=== PATIENT | female | born 1965 | race Caucasian/White ===

== ENCOUNTER 2020-11-09 13:20 | Day surgery (SDC) | payer OTHER ==
[~2020-11-09] VITALS: Ht 165.1 cm; Wt 58.3 kg
[2020-11-09] MEDS ORDERED: LATANOPROST OP (13:49)
[2020-11-09] MEDS ORDERED: AMOX1TAB12 PO (13:49)
[2020-11-09] MEDS ORDERED: HYDR-3245 PO (13:49)
[2020-11-09] MEDS ORDERED: ONDA4TAB13 SL (13:49)
[2020-11-09] MEDS ORDERED: CHLORHEXIDINE 15 ML UDC MM ONE (14:00)
[2020-11-09] MEDS ORDERED: LACTATED RINGERS 1,000 ML IV SCH (14:00)
[2020-11-09 14:01] VITALS: BP 107/70
[2020-11-09] MEDS ORDERED: EPINEPHRINE 1 MG/ML, 1ML ONE (16:20)
[2020-11-09] MEDS ORDERED: LIDOCAINE 1%, 20ML ONE (16:20)
[2020-11-09] MEDS ORDERED: MIDAZOLAM 1 MG/ML, 2ML ONE (16:34)
[2020-11-09] MEDS ORDERED: FENTANYL PF 100 MCG/2ML ONE (16:34)
[2020-11-09] MEDS ORDERED: CEFAZOLIN 1,000 MG ONE (16:36)
[2020-11-09] MEDS ORDERED: PROPOFOL 10 MG/ML, 50ML ONE (16:36)
[2020-11-09] MEDS ORDERED: ONDANSETRON 2MG/ML, 2ML IVPush PRN (17:00)
[2020-11-09] MEDS ORDERED: OXYcodone 5 MG/5 ML ORAL.SOL UDC PO PRN (17:00)
[2020-11-09] MEDS ORDERED: PROMETHAZINE 25 MG/ML, 1ML IVPush PRN (17:00)
[2020-11-09] MEDS ORDERED: KETOROLAC 30 MG/1 ML IVPush PRN (17:00)
[2020-11-09] MEDS ORDERED: ACETAMINOPHEN 325 MG TABLET PO PRN (17:00)
[2020-11-09] MEDS ORDERED: FENTANYL PF 100 MCG/2ML IV PRN (17:00)
[2020-11-09] MEDS ORDERED: ACETAMINOPHEN 650 MG/20.3 ML UDC ONE (17:41)
== END 2020-11-09 18:49 | disposition home or self-care (01) ==
LOC: OUT 13:20
PROVIDERS: ATTEND Orthopaedic Surgery
DX: S61.240A Puncture wound with foreign body of right index finger without damage to nail, initial encounter (principal); H40.9 Unspecified glaucoma; Z20.828 Contact with and (suspected) exposure to other viral communicable diseases; Z79.891 Long term (current) use of opiate analgesic; W27.8XXA Contact with other nonpowered hand tool, initial encounter; Y93.E9 Activity, other interior property and clothing maintenance; Y92.89 Other specified places as the place of occurrence of the external cause; Y99.8 Other external cause status
CPT/HCPCS: 20525; 73120; 87635; J0171; J0690; J2250; J2704; J3010; 76000